=== PATIENT | male | born 1960 | race Caucasian/White ===

== ENCOUNTER 2018-08-13 06:37 | Day surgery (SDC) | payer OTHER ==
[~2018-08-13] VITALS: Ht 170.2 cm; Wt 96.1 kg
[~2018-08-13 06:37] MED LIST: ALLO100 PO; AMLO5; ATOR10 PO; Cytra-2 Oral S473 ML PO; FENO145 PO; FLUO20 PO; FLUT.05NI; GABA300; LATA.005SO; LISI20 PO; LUMIGAN2.5 ML; PROBIOTIC1 EAC1; TRAM50 PO; UROCIT-K15 MEQ PO; VASCEPA1 GM PO; Zofran Odt4 MG SL
--- NOTE | 2018-08-13 09:39 | NUR ---
08/13/18 0939 Jennifer Johnson PT INTO RECLINER 1 PERSON ASSIST. PT DRINKING WATER AND COOKIES. AT CHAIRSIDE. PT MEDICATED WITH IV FENTANYL PER ORDERS FOR LEFT KNUCKLE PAIN. PT RATES PAIN 5/10. ICE AND ELEVATION IMPLEMENTED IN SDU.
== END 2018-08-13 10:20 | disposition home or self-care (01) ==
LOC: ORSCSDS 06:37
PROVIDERS: Orthopaedic Surgery
PROC: 0RBX0ZZ Excision of Left Finger Phalangeal Joint, Open Approach (ICD-10-PCS; principal; 2018-08-13 08:00)
PROC: 01N50ZZ Release Median Nerve, Open Approach (ICD-10-PCS; principal; 2018-08-13 08:00)
DX: G56.02 Carpal tunnel syndrome, left upper limb (principal); M19.049 Primary osteoarthritis, unspecified hand; L72.0 Epidermal cyst; I10 Essential (primary) hypertension; G47.33 Obstructive sleep apnea (adult) (pediatric); Z79.899 Other long term (current) drug therapy
CPT/HCPCS: 82947; J0690; J1100; J1885; J2250; J2405; J2704; J2795; J3010; J7120

== ENCOUNTER 2018-12-05 08:32 | Day surgery (SDC) | payer OTHER ==
[~2018-12-05] VITALS: Ht 170.2 cm; Wt 97.6 kg
--- NOTE | 2018-12-05 11:27 | NUR ---
12/05/18 1127 Yanique Arambula 0950: DR. SOLER INTO ROOM, TIMEOUT CONDUCTED. 0951: 2MG VERSED IVP GIVEN PER DR. SOLER. 0952: 5ML LIDOCAINE 2% WITH EPI 1:200,000 INJECTED AT BEDSIDE. 0955: 5ML MARCAINE 0.5% WITH EPI 1:200,000 INJECTED AT BEDSIDE. 0956: PROCEDURE COMPLETE, PT TOLERATED WELL.
== END 2018-12-05 10:42 | disposition home or self-care (01) ==
LOC: ORSCSDS 08:32
PROVIDERS: Orthopaedic Surgery
PROC: 01N54ZZ Release Median Nerve, Percutaneous Endoscopic Approach (ICD-10-PCS; principal; 2018-12-05 09:45)
DX: G56.01 Carpal tunnel syndrome, right upper limb (principal); I10 Essential (primary) hypertension; G47.33 Obstructive sleep apnea (adult) (pediatric); E11.9 Type 2 diabetes mellitus without complications; J45.909 Unspecified asthma, uncomplicated; Z79.899 Other long term (current) drug therapy
CPT/HCPCS: 82947; J0690; J2250; J2704; J3010; J7120

== ENCOUNTER → 2019-04-11 | Outpatient (CLI) | payer OTHER ==
[2019-04-13 13:36] LABS: Stool Occult Bld Immuno 1 Negative (NEGATIVE)
== END ==
LOC: LAB EV 08:00 → LAB SHORT 08:00
PROVIDERS: Family Medicine
DX: D64.89 Other specified anemias (principal)
CPT/HCPCS: 82274

== ENCOUNTER → 2020-05-10 | Outpatient (CLI) | payer OTHER ==
[2020-05-12 15:41] LABS: CORONAVIRUS (COVID19) CSH-NRL Positive (Negative)
== END | disposition home or self-care (01) ==
LOC: LAB 09:30 → LAB SHORT 09:30
PROVIDERS: Physician Assistant Medical
DX: U07.1 COVID-19 (principal)
CPT/HCPCS: U0003

== ENCOUNTER 2021-11-29 06:48 | Day surgery (SDC) | payer OTHER ==
[~2021-11-29] VITALS: Ht 170.2 cm; Wt 95.2 kg
--- NOTE | 2021-11-29 08:29 | NUR ---
11/29/21 0828 Aroldo Waller 1 MG OF EPI ADDED TO THE FIRST 3 BAGS OF LR USED FOR JOINT IRRIGATION DURING CASE.
--- NOTE | 2021-11-29 09:06 | NUR ---
11/29/21 0906 SALVADOR LEAHY TRIAL FROM 10 TO 5L AND 5L TO OFF O2. DESATES SOME WHEN BECOMES SLEEPY. REMIND PT TO TAKE DEEP BREATH AND COUGH. O2 SATS UP TO HIGH 90'S. C /O NAUSEA. REGLAN GIVEN.
--- NOTE | 2021-11-29 09:45 | NUR ---
11/29/21 0945 SALVADOR LEAHY PT AT BEDSIDE. PT SITTING IN RECLINER EATING SNACKS AND DRINKING FLUIDS. NAUSEA HAS SUBSIDED. PT C/O PAIN 06/28. NORCO GIVEN PO AND FENTANYL 25MCG GIVEN NOW. BP 119/66, PULSE 70, O2 SAT 94%. PT ALERT AND ORIENTED. PT STATES PT HAS CHRONIC PAIN.
== END 2021-11-29 10:15 | disposition home or self-care (01) ==
LOC: ORSCSDS 06:48
PROVIDERS: Orthopaedic Surgery
PROC: 0SBD4ZZ Excision of Left Knee Joint, Percutaneous Endoscopic Approach (ICD-10-PCS; principal; 2021-11-29 08:00)
DX: S83.242A Other tear of medial meniscus, current injury, left knee, initial encounter (principal); S83.282A Other tear of lateral meniscus, current injury, left knee, initial encounter; M22.42 Chondromalacia patellae, left knee; I10 Essential (primary) hypertension; G47.33 Obstructive sleep apnea (adult) (pediatric); E11.9 Type 2 diabetes mellitus without complications; Z79.899 Other long term (current) drug therapy
CPT/HCPCS: 82947; A9270; J0171; J0690; J1100; J1885; J2250; J2405; J2704; J2765; J2795; J3010; J7120